=== PATIENT | female | born 2000 | race Caucasian/White ===

== ENCOUNTER 2023-05-31 04:25 | Emergency (ER) | payer OTHER, SELFPAY ==
[2023-05-31] VITALS (8 sets, daily range): BP systolic 111–123; BP diastolic 58–87; PULSE 72–127; RESP 14–18; TEMP 36.8–37.1; O2SAT 98–100; BMI 19.9
--- NOTE | 2023-05-31 04:45 | EX.ED.DYSGE1 ---
HPI History of Present Illness Chief Complaint: Overdose Informant: patient Onset/Context/Timing Onset: Today Context: Sudden Onset Worsened by: argument with boyfriend Relieved by: Nothing Narrative Narrative: Patient presents after overdose that occurred tonight. Patient states she took 2 doses of nortriptyline 75 mg and 110 mg hydroxyzine tonight. Patient states she took this because she wanted to go to sleep. Patient denies any suicidal or homicidal ideations. Patient states she was in an argument with her boyfriend. Patient denies any nausea or vomiting. Patient admits to drinking alcohol tonight. Patient denies any fevers or chills. Patient denies any chest pain or shortness of breath. [facility] Medical History Depression Home Medications hydroxyzine HCl 10 mg tablet 10 mg PO QHS 05/31/23 [History Last Taken Unknown] lamotrigine 200 mg tablet (Lamictal) 200 mg PO DAILY 05/31/23 [History Last Taken Unknown] nortriptyline 75 mg capsule 75 mg PO DAILY 05/31/23 [History Last Taken Unknown] Allergy/AdvReac Type Severity Reaction Status Date / Time amoxicillin AdvReac Mild Nausea Verified 05/31/23 04:36 clavulanic acid AdvReac Mild Nausea Verified 05/31/23 04:36 [From Augmentin] Surgical History no surgical history no surgical history Social History Smoking Status: Never smoker [facility] ED Constitutional Constitutional ED: Denies chills or fever(s) Eyes Eyes: Denies blurry vision or change in vision ENT ENT ED: Denies rhinorrhea or sore throat Cardiovascular Cardiovascular: Denies chest pain or palpitations Respiratory/Chest Respiratory/Chest: Denies cough or dyspnea Gastrointestinal Gastrointestinal: Denies nausea or vomiting Genitourinary Genitourinary ED: Denies dysuria or hematuria Musculoskeletal Musculoskeletal: Denies back pain or neck pain Integumentary Denies abscess or rash Neurologic Neurologic: Denies headache(s) or weakness Allergic/Immunologic Allergic/Immunologic ED: Denies mouth swelling or urticaria EXAM Physical Exam Const Vital Signs: 05/31/23 04:27 Temperature 98.3 F Temperature Source Temporal Pulse Rate 124 H Respiratory Rate 18 Blood Pressure 123/87 H Blood Pressure Mean 99 Pulse Ox 99 Oxygen Delivery Method Room Air Positive well nourished and well developed General Appearance ED: well developed and NAD HEENT Reports moist mucous membranes Neck supple and no JVD Resp normal respiratory effort and clear to auscultation bilaterally Cardio regular rate and regular rhythm GI non-tender and non-distended Palpation: soft Extremity normal to inspection General Extremety ED: Negative for edema or tenderness General Extremity: Negative for edema Neuro oriented x3, CN's II-XII intact bilaterally and no sensory deficits noted Sensorium / Orientation: alert Motor Exam: strength 5/5 throughout Psych mental status grossly normal MDM MDM MDM Narrative Medical decision making narrative: Medical screening labs will be obtained. CBC will be obtained to assess for leukocytosis and anemia. Basic metabolic profile will be obtained to assess for electrolyte abnormality and renal function. Serum hCG will be obtained to assess for . Serum alcohol level will be obtained to assess for alcohol intoxication. Urine tox screen will be obtained to assess for substance abuse. Lab Data Attestation: I reviewed the patient's lab results. Lab results narrative: CBC was reviewed and was within normal limits. Basic metabolic profile was reviewed and was within normal limits. Serum hCG was reviewed and was negative. Urine tox screen was reviewed and was negative. Serum alcohol level was reviewed and was elevated at 168. Labs: Laboratory Results - last 24 hr 05/31/23 05/31/23 04:45 05:05 WBC 5.3 RBC 3.96 L Hgb 12.2 Hct 36.8 L MCV 92.9 MCH 30.8 MCHC 33.2 RDW Std Deviation 40.0 RDW Coeff of Franck 11.7 Plt Count 210 MPV 10.0 Immature Gran % (Auto) 0.200 Neut % (Auto) 50.9 Lymph % (Auto) 37.3 O'Brien % (Auto) 8.8 Eos % (Auto) 2.2 Baso % (Auto) 0.6 Absolute Neuts (auto) 2.7 Absolute Lymphs (auto) 1.99 Nucleated RBC % 0 Sodium 140 Potassium 3.6 Chloride 109 H Carbon Dioxide 27.0 Anion Gap 4 L BUN 6 L Creatinine 0.69 Estim Creat Clear Calc 106.20 Est GFR (MDRD) Af Amer 137 Est GFR (MDRD) Non-Af 113 BUN/Creatinine Ratio 8.7 L Glucose 95 Calcium 9.2 Serum , Qual NEGATIVE Urine Opiates Screen NEGATIVE Urine Methadone Screen NEGATIVE Ur Barbiturates Screen NEGATIVE Ur Phencyclidine Scrn NEGATIVE Ur Amphetamines Screen NEGATIVE MDMA (Ecstasy) Screen NEGATIVE U Benzodiazepines Scrn NEGATIVE Urine Cocaine Screen NEGATIVE U Cannabinoids Screen NEGATIVE Ur Drug Screen Comment Ethyl Alcohol 168.0 Treatment and Re-Evaluation :: Patient will be observed in the emergency department till she is clinically sober. Crisis will be contacted at that time for further evaluation. Care of the patient will be turned over to oncoming physician pending crisis evaluation. Discharge Plan Triage Chief Complaint: Overdose ED Provider: Jimenez Gonzalez Dx/Rx/DC Orders Clinical Impression: Alcohol intoxication, Drug overdose of undetermined intent Prescriptions: No Action nortriptyline 75 mg capsule 75 mg PO DAILY lamotrigine [Lamictal] 200 mg tablet 200 mg PO DAILY hydroxyzine HCl 10 mg tablet 10 mg PO QHS Primary Care Provider: NOT,DEFINED Referrals: NOT,DEFINED [Primary Care Provider] -
[2023-05-31 05:13] LABS: Absolute Lymphocyte Count 1.99 X10^3/uL (0.83-4.51); Absolute Neutrophil Count 2.7 X10^3/uL (2.0-7.7); Basophil# 0.03 X10^3/uL; Basophil% 0.6 % (0-1); Eosinophil# 0.12 X10^3/uL; Eosinophils% 2.2 % (0-5); Hematocrit 36.8 % (37-47); Hemoglobin 12.2 g/dL (12.0-15.0); Lymphocyte # 1.99 X10^3/ul (0.83-4.51); Lymphocyte % 37.3 % (19-41); Mean Corp Hgb Conc 33.2 g/dL (32-36); Mean Corpuscular Hgb 30.8 pg (27.0-32.0); Mean Corpuscular Volume 92.9 fL (81-99); Monocyte# 0.47 X10^3/uL; Monocyte% 8.8 % (0-10); NRBC Flagged by Analyzer 0 % (0-5); Neutrophil # 2.72 X10^3/uL (2.7-7.7); Neutrophil % 50.9 % (47-70); Platelet Count 210 K/mm3 (150-450); RBC Distribution Width CV 11.7 % (11.6-14.6); Red Blood Count 3.96 M/mm3 (4.2-5.4); White Blood Count 5.3 K/mm3 (4.4-11.0)
[2023-05-31 05:25] LABS: Internal QC Validated? YES +Cl - CLEAR BKGD; Pregnancy, Serum, hCG Quali. NEGATIVE Negative
[2023-05-31 05:27] LABS: Anion Gap 4 (5-15); BUN 6 mg/dL (7-18); BUN/Creat Ratio 8.7 RATIO (10-20); Calcium,Total 9.2 mg/dL (8.5-10.1); Chloride 109 mmol/L (98-107); Creatinine, Serum 0.69 mg/dL (0.55-1.02); EST Glomerular Filtration Rate 113 mL/min (>60); Est Glom Filt Rate - Afr Amer 137 mL/min (>60); Glucose 95 mg/dL (74-106); Potassium 3.6 mmol/L (3.5-5.1); Sodium Level 140 mmol/L (136-145)
[2023-05-31 05:31] LABS: Amphetamine Urine VISTA NEGATIVE (<1000 ng/mL); Barbiturate Urine VISTA NEGATIVE (< 200 ng/mL); Benzodiazepine Urine VISTA NEGATIVE (< 200 ng/mL); Cocaine Urine VISTA NEGATIVE (< 300 ng/mL); Ecstacy Urine VISTA NEGATIVE (< 500 ng/mL); Methadone Urine VISTA NEGATIVE (< 300 ng/mL); PCP Urine VISTA NEGATIVE (< 25 ng/mL); THC Urine VISTA NEGATIVE (< 50 ng/mL); Vista UDS pH Range 7
--- NOTE | 2023-05-31 07:02 | NURSING ---
FAXED CHART TO [facility]
--- NOTE | 2023-05-31 08:03 | NURSING ---
[facility] HERE FOR PATIENT
--- NOTE | 2023-05-31 09:56 | ED.RN ---
THIS RN HAD MORE INFORMATION SHARED WITH HER FROM [facility]IC[facility] AND FROM [facility]. PT HAS MADE MULTIPLE THREATS TO END HER LIFE. PLAN WITH [facility] FOR PT TO POSSIBLE BE PLACED. SITTER WITH PT. PT ANGRY AND MANIPULATIVE WITH THIS RN. PT AWARE THAT AT PRESENT TIME [facility] WILL COME BACK TO TALK WITH PT
--- NOTE | 2023-05-31 10:49 | ED.RN ---
[facility] BACK IN TO EVALUATE. PT TO BE PLACED. SITTER REMAINS WITH PT
--- NOTE | 2023-05-31 11:22 | ED.RN ---
PT SOWS THIS RN A TEXT MESSAGE FROM HER DAD STATING I KNOW WHAT HAPPENED, PLEASE STAY THERE AND GET HELP
[2023-05-31] MEDS: lamoTRIgine 100 MG Tablet 200 MG PO (11:51)
--- NOTE | 2023-05-31 13:06 | NURSING ---
FAXED PINK SLIPS TO [facility]
--- NOTE | 2023-05-31 14:11 | CM.ED ---
Social Work Spoke with Jimenez in intake at [facility] ([phone], option #2) who inquired as to how long patient has been at [facility], as doctor is asking patient be observed for 12 hours post overdose before transfer; also need an EKG. Jimenez asked for clarification as to whether patient went home on a safety plan and came back, or if has been in the ED the entire time. Jimenez reports would like calcification on this and can take to medical billing coder for re-review of timeframe for acceptance. Chart reviewed and talked with ED staff. Patient to ED for an overdose and has been assessed by [facility] at [facility]. Referral for placement initiated by Crisis. Noted 911 call occurred at 0358 and arrival to the ED at 0423. Per ED staff, a crisis safety plan was being considered initially, however additional information came in from [facility] indicating that actions of higher risk than initially relayed. Decision to for inpatient admission determined to be in need. Spoke with Libra CHAVIS of need for EKG. This will be ordered and ED staff will fax to [facility]. Called [facility], spoke with Nichole in intake. Updated that patient as been in the since about roughly 0430 this morning, so at the 9 and a half hour arturo in the ED. Updated that safety plan was considered and ruled out. Nichole reports Jimenez will take information to physician and call the ED back. Plan: Pending acceptance at [facility]. -FEI Le
--- NOTE | 2023-05-31 14:35 | NURSING ---
CALLED [facility], ETA IS 3 HRS
--- NOTE | 2023-05-31 16:44 | NURSING ---
[facility] CALLED, ETA IS NOW [phone]
--- NOTE | 2023-05-31 21:29 | NURSING ---
CALLED [facility] AT [phone] TO CHECK ON [facility] ETA AND WAS INFORMED IT WOULD BE ANOTHER 3 HOURS.
--- NOTE | 2023-06-01 00:49 | NURSING ---
SPOKE WITH GABBIE AT [facility] AND ASKED FOR AN UPDATED ETA ON TRANSPORT AND WAS TOLD HER [facility] WILL NOW NOT BE TILL 6:30AM
[2023-06-01 03:00] VITALS: RESP 14
[2023-06-01 04:41] VITALS: RESP 16
[2023-06-01 05:03] VITALS: BP 123/76; PULSE 79; RESP 16; O2SAT 99
[2023-06-01 06:00] VITALS: BP 122/86; PULSE 97; RESP 16; O2SAT 99
== END 2023-06-01 06:29 ==
PROVIDERS: Emergency Provider Emergency Medicine; Visit Provider Emergency Medicine
DX: T43.014A Poisoning by tricyclic antidepressants, undetermined, initial encounter (principal); F10.129 Alcohol abuse with intoxication, unspecified; T45.0X4A Poisoning by antiallergic and antiemetic drugs, undetermined, initial encounter; T51.94XA Toxic effect of unspecified alcohol, undetermined, initial encounter; Y90.6 Blood alcohol level of 120-199 mg/100 ml; F32.A Depression, unspecified; Z78.1 Physical restraint status
CPT/HCPCS: 36415; 80048; 80307; 80320; 84703; 85025; 93005; 99283; G0480